=== PATIENT | female | born 1995 | race Caucasian/White ===

== ENCOUNTER → 2018-01-04 10:11 | Outpatient (CLI) | payer BC, SELFPAY ==
--- NOTE | 2018-01-04 10:13 | US_ITS ---
US OB transvaginal CLINICAL INDICATION: Evaluate early gestational age and viability ITS.REASON: US OB- Dates ORDERING PHYSICIAN: Timmy Ogden MD PATIENT AGE: 22 years COMPARISON: None FINDINGS: There is a twin gestation present with 2 fetuses and 2 separate heartbeats. The crown-rump length of fetus B which was cephalad within the endometrial canal is 1.87 cm correlating to gestational age of 8 weeks and 3 days. Fetus B heart rate is 174 bpm. [place]-rump length of fetus a is 1.7 cm correlating to gestational age of 8 weeks 2 days. Fetus A heart rate is 174 bpm. The chorion and amnion are not yet fused. There does appear to be 2 sacs. Yolk sac is noted at fetus B. There is a 2 cm right corpus luteum cyst. IMPRESSION: Live twin gestation at 8 weeks 2 with an estimated due date of 08/13/2016 days. Heart tones noted within both fetuses
[2018-01-04 12:13] LABS: Basophils % 0.3 % (0.1-2.0); Eosinophils # 0.1 K/mm3 (0.0-0.4); Hematocrit 36.6 % (37.0-47.0); Hemoglobin 12.2 g/dL (12.2-16.2); Lymphocytes # 1.8 K/mm3 (0.7-4.5); Lymphocytes % 22.1 K/mm3 (10-50); Mean Corpuscular HGB Conc 33.3 g/dL (31.8-35.4); Mean Corpuscular Hemoglobin 30.1 pg (27.0-31.2); Mean Corpuscular Volume 90.5 fl (81-99); Mean Platelet Volume 7.8 fl (7.4-10.4); Monocytes # 0.4 K/mm3 (0.1-1.0); Monocytes % 5.4 % (1.7-9.3); Neutrophils # 5.7 K/mm3 (1.8-7.8); Neutrophils % 71.2 % (37.0-80.0); Platelet Count 233 K/mm3 (142-424); Red Blood Count 4.05 M/mm3 (4.20-5.40); Red Cell Distribution Width 12.9 % (11.5-17.5); White Blood Count 7.9 K/mm3 (4.8-10.8)
[2018-01-05 18:40] LABS: HIV Screen 4th Generation wRfx Non Reactive (Non Reactive); Hepatitis B Surface Antigen Negative (Negative); Hepatitis C Antibody 0.1 s/co ratio (0.0-0.9); Rapid Plasma Reagin Ab Titer Non Reactive (NonRea<1:1); Rubella Antibodies, IgG <0.90 index (Immune >0.99)
== END ==
PROVIDERS: Family Provider Emergency Medicine; PCP Emergency Medicine; Visit Provider Nurse Practitioner Obstetrics & Gynecology
DX: Z34.90 Encounter for supervision of normal pregnancy, unspecified, unspecified trimester (principal); O26.841 Uterine size-date discrepancy, first trimester
CPT/HCPCS: 76830; 85025; 86592; 86703; 86762; 86850; 87340; 87380; G0432

== ENCOUNTER 2018-04-03 12:55 | Outpatient (CLI) | payer BC, SELFPAY ==
[2018-04-03 14:19] VITALS: BP 107/70; PULSE 107; RESP 20; TEMP 36.7; O2SAT 100
[2018-04-03 14:28] LABS: Anion Gap 13.4 mEq/L (5-15); Blood Urea Nitrogen 7 mg/dL (7-18); Calcium 7.6 mg/dL (8.5-10.1); Carbon Dioxide 25 mmol/L (21.0-32.0); Chloride 104 mmol/L (98-107); Creatinine Clearance Estimated 143 mL/min (0-300); Creatinine,Serum 0.52 mg/dL (0.55-1.02); Estimated Glomerular Filt Rate 145 ml/min (>60); GFR (African American) 175 ML/MIN (>60); Glucose 122 mg/dL (74-106); Potassium 3.4 mmoL/L (3.5-5.1); Sodium 139 mmol/L (136-145)
[2018-04-03 14:39] LABS: Basophils % 0.2 % (0.1-2.0); Eosinophils % 0.4 % (0.1-12.0); Hemoglobin 9.5 g/dL (12.2-16.2); Lymphocytes # 1.1 K/mm3 (0.7-4.5); Lymphocytes % 11.6 K/mm3 (10-50); Mean Corpuscular HGB Conc 32.6 g/dL (31.8-35.4); Mean Corpuscular Hemoglobin 30.2 pg (27.0-31.2); Mean Corpuscular Volume 92.6 fl (81-99); Mean Platelet Volume 7.7 fl (7.4-10.4); Monocytes # 0.2 K/mm3 (0.1-1.0); Monocytes % 2.1 % (1.7-9.3); Neutrophils # 8.4 K/mm3 (1.8-7.8); Neutrophils % 85.7 % (37.0-80.0); Platelet Count 224 K/mm3 (142-424); Red Blood Count 3.13 M/mm3 (4.20-5.40); Red Cell Distribution Width 13.9 % (11.5-17.5); White Blood Count 9.8 K/mm3 (4.8-10.8)
[2018-04-03 14:41] LABS: MANUAL DIFFERENTIAL MANUAL DIFFERENTIAL (MANUAL DIFF)
[2018-04-03 15:17] LABS: Lymphocytes % 10 % (10-50); Monocytes % 4 % (2-9); Neutrophils % 86 % (42-76); Platelet Estimate Normal; Total Cells Counted 100
== END 2018-04-03 15:34 | disposition home or self-care (01) ==
LOC: RAD 12:55 → OBOUT 13:54 → OB 13:55
PROVIDERS: Family Provider Emergency Medicine; PCP Emergency Medicine; Visit Provider Nurse Practitioner Obstetrics & Gynecology
DX: O30.002 Twin pregnancy, unspecified number of placenta and unspecified number of amniotic sacs, second trimester (principal); Z3A.23 23 weeks gestation of pregnancy; R11.2 Nausea with vomiting, unspecified
CPT/HCPCS: 80048; 85007; 85025; 96360; J2405

== ENCOUNTER → 2018-04-08 13:53 | Outpatient (CLI) | payer BC, SELFPAY ==
--- NOTE | 2018-04-08 | US_ITS ---
US OB /maternal detail, US OB f/u add gest: INDICATION: ITS.REASON: US OB Complete Anatomy Scans(TWINS) ORDERING PHYSICIAN: Timmy Ogden MD PATIENT AGE: 23 years TECHNIQUE: ultrasound transabdominal scanning. COMPARISON: No previous relevant studies. FINDINGS: Twin viable intrauterine gestation. . There is average amount fluid. The cervix appears satisfactory. Closed and measuring 3 cm in length. Complete survey performed and was unremarkable on the submitted images as in PACS. No discrete anomalies identified on survey imaging by technologist. Active fetus. Three-vessel cord with satisfactory umbilical cord insertion. 4- chamber heart noted. Survey of brain & ventricles unremarkable. Face and neck survey unremarkable. Diaphragm and chest views unremarkable. Abdomen: Both kidneys noted and unremarkable. Stomach noted and satisfactory. Spine: Survey of the spine satisfactory with no anomalies identified nor imaged. Both arms and legs noted. Amniotic Fluid: Adequate. Maternal adnexa: No significant findings. Measurements: FETUS A, cephalic presentation, no obvious anomalies, posterior grade 1 placenta Average ultrasound age 21 weeks 2 days. Gestational Age 23 weeks 5 days. Estimated due date by ultrasound age 1108/17/2018. Estimated weight 397 g. This is 2nd percentile based on the established due date of 08/15/2018. BPD = 22 weeks 0 days OFD = 21 weeks 6 days HC = 21 weeks 1 day AC = 21 weeks 3 days FL = 20 weeks 4 days Heart Rate = 147 BPM Cerebellum = 23 weeks 0 days Humerus = 21 weeks 3 days HC/AC is 1.15. CI is 79%. FL/BPD is 64%. FL/AC is 21%. FETUS B: Breech position. Anterior grade 1 placenta. No obvious anomalies Average ultrasound age 21 weeks 3 days. Gestational age 23 weeks 5 days. Estimated due date by ultrasound 08/16/2018. Estimated weight 405 g which is 2nd percentile based on established due date of 08/15/2018 BPD: 22 weeks 1 day. OFD: 22 weeks 0 days. HC: 21 weeks 2 days. Abdominal circumference 21 weeks 5 days. FL: 20 weeks 4 days. Heart rate 150 BPM's. Cerebellum: 22 weeks 4 days. Humerus: 21 weeks 3 days IMPRESSION: There is a live twin gestation is dichorionic and diamniotic with an average ultrasound age of 21 weeks and 3 days. Both of the fetuses are at 2nd percentile in weight. All parameters correlate. No obvious anomalies. Please see above for detail.
== END ==
PROVIDERS: Family Provider Emergency Medicine; PCP Emergency Medicine; Visit Provider Nurse Practitioner Obstetrics & Gynecology
DX: Z36.0 Encounter for antenatal screening for chromosomal anomalies (principal)
CPT/HCPCS: 76811; 76816

== ENCOUNTER 2018-04-30 14:35 | Outpatient (CLI) | payer BC, SELFPAY ==
[2018-04-30 14:47] VITALS: BP 100/61; PULSE 100; RESP 18; TEMP 36.4; O2SAT 100; BMI 20.4
== END 2018-04-30 15:00 | disposition home or self-care (01) ==
LOC: OBOUT 14:38 → OB 14:38
PROVIDERS: PCP Emergency Medicine; Visit Provider Nurse Practitioner Obstetrics & Gynecology
DX: Z34.90 Encounter for supervision of normal pregnancy, unspecified, unspecified trimester (principal)
CPT/HCPCS: 96372

== ENCOUNTER 2018-05-01 14:35 | Outpatient (CLI) | payer BC, SELFPAY ==
[2018-05-01 14:50] VITALS: BMI 21.0
== END 2018-05-01 15:00 | disposition home or self-care (01) ==
LOC: OBOUT 14:36 → OB 14:48
PROVIDERS: PCP Emergency Medicine; Visit Provider Nurse Practitioner Obstetrics & Gynecology
DX: O30.042 Twin pregnancy, dichorionic/diamniotic, second trimester (principal); Z3A.25 25 weeks gestation of pregnancy
CPT/HCPCS: 96372

== ENCOUNTER 2018-05-01 21:48 | Outpatient (CLI) | payer BC, SELFPAY ==
[2018-05-01 21:54] VITALS: BMI 21.0
[2018-05-01 22:12] VITALS: BP 119/69; PULSE 105; RESP 17; TEMP 36.8; O2SAT 97; BMI 21.0
[2018-05-01 22:31] LABS: Microscopic, Urine URINE MICROSCOPIC (MICROSCOPIC)
[2018-05-01 22:32] LABS: Appearance,Urine CLEAR (Clear); Bilirubin,Urine Negative (Negative); Blood, Urine TRACE-I (Negative); Color,Urine YELLOW (Yellow); Glucose,Urine (UA) Negative (Negative); Ketones,Urine Negative (Negative); Leukocyte Esterase,Urine 1+ (Negative); Nitrate,Urine Negative (Negative); Protein,Urine Negative (Negative); Specific Gravity, Urine 1.015 (1.005-1.030); Urobilinogen,Urine 0.2 EU/dl (0.2)
[2018-05-01 22:39] LABS: Bacteria,Urine 2+ /lpf; RBC,Urine Occasional #/hpf (0-3); Squamous Epithelial Cell,Urine TNTC #/hpf (0-5)
[2018-05-01 23:07] LABS: Fetal Fibronectin (Rapid) Negative (Negative)
== END 2018-05-02 00:50 | disposition home or self-care (01) ==
LOC: OBOUT 21:50 → OB 21:51
PROVIDERS: PCP Emergency Medicine; Referring Provider Nurse Practitioner Obstetrics & Gynecology; Visit Provider Obstetrics & Gynecology
DX: O26.92 Pregnancy related conditions, unspecified, second trimester (principal); Z3A.27 27 weeks gestation of pregnancy; R10.30 Lower abdominal pain, unspecified
CPT/HCPCS: 59025; 81001; 82731; 87086; 96360

== ENCOUNTER 2018-05-22 20:18 | Outpatient (CLI) | payer BC, SELFPAY ==
[2018-05-22 20:28] VITALS: BMI 20.2
[2018-05-22 20:35] LABS: Microscopic, Urine URINE MICROSCOPIC (MICROSCOPIC)
[2018-05-22 20:37] LABS: Appearance,Urine CLEAR (Clear); Bilirubin,Urine Negative (Negative); Blood, Urine TRACE-L (Negative); Color,Urine YELLOW (Yellow); Glucose,Urine (UA) Negative (Negative); Ketones,Urine Negative (Negative); Leukocyte Esterase,Urine 2+ (Negative); Nitrate,Urine Negative (Negative); Protein,Urine Negative (Negative); Specific Gravity, Urine 1.015 (1.005-1.030)
[2018-05-22 20:50] VITALS: BP 128/70; PULSE 105; RESP 18; TEMP 37.2; O2SAT 100
[2018-05-22 20:51] LABS: Bacteria,Urine 2+ /lpf; Mucus,Urine 2+ /lpf; Squamous Epithelial Cell,Urine 20-50 #/hpf (0-5)
[2018-05-22 21:00] VITALS: BMI 20.4
[2018-05-22 21:11] LABS: Fetal Membrane Rupture (Rapid) Negative (Negative)
== END 2018-05-22 22:35 | disposition home or self-care (01) ==
LOC: OBOUT 20:20 → OB 20:22
PROVIDERS: PCP Emergency Medicine; Visit Provider Nurse Practitioner Obstetrics & Gynecology
DX: O47.03 False labor before 37 completed weeks of gestation, third trimester (principal); Z3A.30 30 weeks gestation of pregnancy; R10.2 Pelvic and perineal pain
CPT/HCPCS: 59025; 81001; 84112; 87086; 96360; 96372

== ENCOUNTER 2018-05-24 21:06 | Outpatient (CLI) | payer BC, SELFPAY ==
[2018-05-24 21:22] VITALS: BP 111/78; PULSE 110; RESP 18; TEMP 36.9; O2SAT 97; BMI 20.9
[2018-05-24 22:35] LABS: Fetal Fibronectin (Rapid) Negative (Negative)
== END 2018-05-24 22:50 | disposition home or self-care (01) ==
LOC: OBOUT 21:08 → OB 21:09
PROVIDERS: PCP Nurse Practitioner Obstetrics & Gynecology; Visit Provider Obstetrics & Gynecology
DX: O36.8130 Decreased fetal movements, third trimester, not applicable or unspecified (principal); O30.003 Twin pregnancy, unspecified number of placenta and unspecified number of amniotic sacs, third trimester; Z3A.28 28 weeks gestation of pregnancy
CPT/HCPCS: 59025; 82731; 96360

== ENCOUNTER 2020-06-17 15:20 | Emergency (ER) | payer BC, SELFPAY ==
[2020-06-17 16:03] VITALS: BP 101/70; PULSE 82; RESP 20; TEMP 36.9; O2SAT 99; BMI 23.0
--- NOTE | 2020-06-17 16:13 | HMH.EDUTC ---
[facility] [place] Disposition Clinical Impression: Laryngitis Disposition: Home, Self-Care Condition on Discharge: Good Instructions: Laryngitis, DI for Laryngitis Additional Instructions: *Monitor Temp, Over the counter Motrin or Tylenol as directed/as needed Tylenol every 4 hours and Motrin every 6 hours (as long as your family doctor has told you that you can take it) for fever or pain. and straight to ER if unable to lower temp less than 101.0 after medication given *Warm salt water gargles may help to soothe the throat and help with irritation *Throat Lozenges *Warm fluids like tea with honey may help to soothe the throat *Sleep elevated *Humidifier/Vaporizer *Flonase 2 sprays in each nostril daily but be aware that it may take 2-3 days before you notice improvement Your throat swab was sent for culture. Those results are typically sent to your primary care. Be sure to follow up in 2-3 days with your family doctor/primary care physician if no improvement so they can review those result and treat if necessary. If you don?t have a primary care doctor, I recommend you get one but in the mean time, you will have to return to a walk in clinic Follow up IMMEDIATELY for new or worsening symptoms or no Noticeable improvement over the next 48-72 hours. 911 for difficulty breathing or swallowing Referrals: José To MD [Primary Care Provider] - As needed Time of Disposition: 16:17 Medical Decision Making - Catalino Inquiry Pt receiving controlled substance: No Catalino was queried for this patient: No Vital Signs: 06/17/20 16:03 Temperature 98.4 F Temperature Source Oral Pulse Rate [Right Brachial] 82 Respiratory Rate 20 Blood Pressure [Right Arm] 101/70 L Blood Pressure Mean [Right Arm] 80 Blood Pressure Source [Right Arm] Automatic Cuff Blood Pressure Position [Right Arm] Sitting 02 Sat by Pulse Oximetry 99 Oxygen Delivery Method Room Air - Lab Data Lab results reviewed: Yes: I reviewed the patient's lab results. [facility] [place] HPI - General Stated complaint: SOB, Can't talk Time Seen by Provider: 06/17/20 16:13 Mode of Arrival: Ambulatory Source of Information: Patient Limitations: No Limitations Description of Symptoms (Recalled from Triage Doc. by RN): PATIENT STATES SHE WOKE UP THIS MORNING AND IS LOSING HER VOICE; DENIES ANY OTHER SYMPTOMS HEENT Symptoms (Recalled from RN notes): Yes Resp Symptoms (Recalled from RN notes): No Skin Symptoms (Recalled from RN notes): No MS Symptoms (Recalled from RN notes): No Functional Status (Recalled from RN notes): WNL - History of Present Illness Provider Complaint: Patient states that she woke up this morning and had lost her voice, States that she isnt having any other symptoms Denies sore throat, denies sinus pain or pressure denies cough and fever - Related Data Home Medications Medication Instructions Recorded Confirmed penicillin V potassium 250 mg 250 mg PO QID 07/17/18 07/17/18 tablet Previous Rx's Medication Instructions Recorded albuterol sulfate 90 mcg/actuation 1 inh INHALATION Q4-6H PRN #1 each 03/14/19 breath activated powder inhaler Allergies Allergy/AdvReac Type Severity Reaction Status Date / Time No Known Allergies Allergy Verified 07/17/18 16:15 - Worker's Comp Is this a Worker's Comp case?: No [facility] History - Hepatitis A Screen Drug use history?: No High risk sexual behaviors?: No History of sexually transmitted infection?: No Currently employed?: No Childcare worker?: No Do you have indoor plumbing?: Yes Do you have electricity?: Yes Attestation statement:: This patient has been screened for Hepatitis A risk factors. I have reviewed the patient's past medical history: Yes Medical History: Reports:: Asthma, MRSA Denies:: Anxiety, Depression, Diabetes Mellitus Type 1, Diabetes Mellitus Type 2, Hyperlipidemia, Hypertension, Migraine, Seizures Other Surgeries: Yes: Amputation: No Fractures: No - Soci
[2020-06-17 16:18] VITALS: BP 101/70; PULSE 82; RESP 20; TEMP 36.9; O2SAT 99
[2020-06-17 20:53] LABS: UTC Strep Screen (Rapid) Negative (Negative)
== END 2020-06-17 16:20 | disposition home or self-care (01) ==
PROVIDERS: Emergency Provider Nurse Practitioner; PCP Emergency Medicine
DX: J04.0 Acute laryngitis (principal)
CPT/HCPCS: 87880; 99201

== ENCOUNTER → 2020-06-25 10:35 | Outpatient (CLI) | payer BC, SELFPAY ==
[2020-06-25 12:33] LABS: HCG,Quantitative < 2 mIU/ml (0-5.42)
== END ==
PROVIDERS: Visit Provider Nurse Practitioner Obstetrics & Gynecology
DX: N92.6 Irregular menstruation, unspecified (principal)
CPT/HCPCS: 36415; 84702

== ENCOUNTER 2020-09-16 12:56 | Emergency (ER) | payer BC, SELFPAY ==
[2020-09-16 13:10] VITALS: BP 117/76; PULSE 132; RESP 20; TEMP 36.6; O2SAT 99; BMI 24.1
--- NOTE | 2020-09-16 13:30 | HMH.EDUTC ---
[facility] [place] Disposition Clinical Impression: Bronchitis Pharyngitis Qualifiers: Pharyngitis/tonsillitis etiology: unspecified etiology Qualified Code(s): J02.9 - Acute pharyngitis, unspecified Disposition: Home, Self-Care Condition on Discharge: Good Instructions: DI for Strep Throat Additional Instructions: Drink plenty of fluids. Take tylenol for pain or fever. Return if you begin to have difficulty breathing. Follow up with your regular doctor. GO TO THE ER FOR ANY WORSENING SYMPTOMS Throw your tooth brush away and get a new one. Prescriptions: Albuterol Sulfate [Albuterol Sulfate Hfa] 2 puffs IH Q6HP PRN 30 Days #1 [email or web address] PRN Reason: Shortness Of Breath Transmission Status: Pending to [facility] Brompheniramine/Pseudoephed/Dm [Bromfed Dm Cough Syrup] 5 ml PO Q6HP PRN #240 syrup PRN Reason: Cough Transmission Status: Pending to [facility] Azithromycin [Z-Norris 250mg Tab*] 250 mg PO UD DOSE PK #6 tab Transmission Status: Pending to [facility] Referrals: José To MD [Primary Care Provider] - Time of Disposition: 13:34 Medical Decision Making - Medical Records Medical records reviewed: No: I reviewed the patient's medical records. - Catalino Inquiry Pt receiving controlled substance: No Vital Signs: 09/16/20 13:10 Temperature 97.8 F Temperature Source Temporal Artery Scan Pulse Rate [Left Brachial] 132 H Respiratory Rate 20 Blood Pressure [Left Arm] 117/76 Blood Pressure Mean [Left Arm] 89 Blood Pressure Source [Left Arm] Automatic Cuff Blood Pressure Position [Left Arm] Sitting 02 Sat by Pulse Oximetry 99 Oxygen Delivery Method Room Air - Lab Data Lab results reviewed: Yes: I reviewed the patient's lab results. [facility] [place] HPI - General Stated complaint: cough,runny nose,ear pain Time Seen by Provider: 09/16/20 13:30 Mode of Arrival: Ambulatory Source of Information: Patient Limitations: No Limitations Description of Symptoms (Recalled from Triage Doc. by RN): PATIENT C/O SORE THROAT, RUNNY NOSE, COUGH, AND EAR PAIN X 2 DAYS HEENT Symptoms (Recalled from RN notes): Yes Resp Symptoms (Recalled from RN notes): Yes Skin Symptoms (Recalled from RN notes): No MS Symptoms (Recalled from RN notes): No Functional Status (Recalled from RN notes): WNL - History of Present Illness Provider Complaint: She c/o sore throat and chilling since yesterday. She refuses a covid test. - Related Data Previous Rx's Medication Instructions Recorded albuterol sulfate 90 mcg/actuation 1 inh INHALATION Q4-6H PRN #1 each 03/14/19 breath activated powder inhaler Albuterol Sulfate [Albuterol 2 puffs IH Q6HP PRN 30 Days #1 09/16/20 Sulfate Hfa] hfa.aer.ad Azithromycin [Z-Norris 250mg Tab*] 250 mg PO UD DOSE PK #6 tab 09/16/20 Brompheniramine/Pseudoephed/Dm 5 ml PO Q6HP PRN #240 syrup 09/16/20 [Bromfed Dm Cough Syrup] Allergies Allergy/AdvReac Type Severity Reaction Status Date / Time No Known Allergies Allergy Verified 07/17/18 16:15 - Worker's Comp Is this a Worker's Comp case?: No [facility] History - Hepatitis A Screen Drug use history?: No High risk sexual behaviors?: No History of sexually transmitted infection?: No Currently employed?: No Childcare worker?: No Do you have indoor plumbing?: Yes Do you have electricity?: Yes Attestation statement:: This patient has been screened for Hepatitis A risk factors. I have reviewed the patient's past medical history: Yes Medical History: Reports:: Asthma, MRSA Denies:: Anxiety, Depression, Diabetes Mellitus Type 1, Diabetes Mellitus Type 2, Hyperlipidemia, Hypertension, Migraine, Seizures Other Surgeries: Yes: Amputation: No Fractures: No - Social History Smoking Status: Never smoker Tobacco Type: cigarettes # Packs/Day (cigarettes): 1 Alcohol Intake: never Alcohol Intake Frequency:: holidays/special occasions only Substance Use Type: denies use Occupational Status: other Ho
[2020-09-16 13:33] LABS: UTC Strep Screen (Rapid) Negative (Negative)
[2020-09-16 13:41] VITALS: BP 117/76; PULSE 132; RESP 20; TEMP 36.6; O2SAT 99
== END 2020-09-16 13:46 | disposition home or self-care (01) ==
PROVIDERS: Emergency Provider Nurse Practitioner Family; PCP Emergency Medicine
DX: J20.9 Acute bronchitis, unspecified (principal); J02.9 Acute pharyngitis, unspecified; J45.909 Unspecified asthma, uncomplicated; Z79.899 Other long term (current) drug therapy
CPT/HCPCS: 87880; 99201

== ENCOUNTER 2020-12-28 12:33 | Emergency (ER) | payer BC, SELFPAY ==
[2020-12-28 12:45] VITALS: BP 112/79; PULSE 115; RESP 14; TEMP 36.9; O2SAT 100; BMI 24.7
[2020-12-28 12:53] LABS: Apearance,Urine Clear (Clear); Color,Urine Dark Yellow (Yellow)
[2020-12-28 12:54] LABS: Glucose,Urine (UA) Negative (Negative); Ketones,Urine SMALL (Negative); Specific Gravity, Urine 1.025 (1.005-1.030)
[2020-12-28 12:55] LABS: Bilirubin,Urine 1+ (Negative); Blood, Urine 4+ (Negative); Protein,Urine 3+ (Negative)
[2020-12-28 12:56] LABS: UTC Leukocyte Esterase,Urine 1+ (Negative); UTC Nitrate,Urine Positive (Negative); UTC Pregnancy Test, Urine Negative (Negative); Urobilinogen,Urine 0.2 EU/dl (0.2)
--- NOTE | 2020-12-28 13:08 | HMH.EDUTC ---
[facility] [place] Clinical Impression: UTI (urinary tract infection) Qualifiers: Urinary tract infection type: site unspecified Hematuria presence: with hematuria Qualified Code(s): N39.0 - Urinary tract infection, site not specified Disposition: Home, Self-Care Condition on Discharge: Good Instructions: Urinary Tract Infection, DI for Urinary Tract Infection (UTI) Additional Instructions: Drink plenty of fluids. Take tylenol or ibuprofen for pain or fever. Take the medications as directed. Follow up with your regular doctor. GO TO THE ER FOR ANY WORSENING SYMPTOMS The pyridium will make your urine turn orange, this is an expected side effect. It will stain your clothes if it comes into contact with them. Prescriptions: Ondansetron [Zofran 4mg ODT] 4 mg PO Q8HP PRN #20 tab.rapdis PRN Reason: Nausea Transmission Status: Received by Clinic [facility] Sulfamethoxazole/Trimethoprim [Bactrim DS tablet] 1 each PO BID 7 Days #14 tab Transmission Status: Received by [facility] Phenazopyridine HCl [Pyridium 200mg Tablet] 200 pow PO TID #6 tab Transmission Status: Received by [facility] Referrals: PCP,No [Primary Care Provider] - Time of Disposition: 13:13 Medical Decision Making - Medical Records Medical records reviewed: No: I reviewed the patient's medical records. - Catalino Inquiry Pt receiving controlled substance: No Vital Signs: 12/28/20 12:45 12/28/20 13:22 Temperature 98.5 F 98 F Temperature Source Oral Pulse Rate 109 H Pulse Rate [Right] 115 H Respiratory Rate 14 15 Blood Pressure 116/81 Blood Pressure [Right Arm] 112/79 Blood Pressure Mean [Right Arm] 90 Blood Pressure Source [Right Arm] Automatic Cuff Blood Pressure Position [Right Arm] Sitting 02 Sat by Pulse Oximetry 100 Oxygen Delivery Method Room Air - Lab Data Lab results reviewed: Yes: I reviewed the patient's lab results. Lab Results 12/28/20 12:45: Urine Color Dark yellow, Urine Appearance Clear, Urine pH 6.0, Ur Specific Saline 1.025, Urine Protein 3+, Urine Glucose (UA) Negative, Urine Ketones Small, Urine Blood 4+, Urine Nitrate Positive A, Urine Bilirubin 1+ A, Urine Urobilinogen 0.2, Ur Leukocyte Esterase 1+ A, Tst Clinic Negative Orders (Tests/Meds): ORDERS Category Date Time Status Urine Culture Routine Micro 12/28/20 12:40 Received [facility] [place] HPI - General Stated complaint: stomach pain and vomiting Time Seen by Provider: 12/28/20 13:08 Mode of Arrival: Ambulatory Source of Information: Patient Limitations: No Limitations Description of Symptoms (Recalled from Triage Doc. by RN): pt states she is having abd in her lower quads radiating to her flank. pt is having N/V/D. pt states she is throwing up green bile. pt has not had a period this month. HEENT Symptoms (Recalled from RN notes): No Resp Symptoms (Recalled from RN notes): No Skin Symptoms (Recalled from RN notes): No MS Symptoms (Recalled from RN notes): No Functional Status (Recalled from RN notes): na - History of Present Illness Provider Complaint: She c/o low back pain and lower abdominal tenderness for the past 2 days. - Related Data Previous Rx's Medication Instructions Recorded albuterol sulfate 90 mcg/actuation 1 inh INHALATION Q4-6H PRN #1 each 03/14/19 breath activated powder inhaler Albuterol Sulfate [Albuterol 2 puffs IH Q6HP PRN 30 Days #1 09/16/20 Sulfate Hfa] hfa.aer.ad Azithromycin [Z-Norris 250mg Tab*] 250 mg PO UD DOSE PK #6 tab 09/16/20 Brompheniramine/Pseudoephed/Dm 5 ml PO Q6HP PRN #240 syrup 09/16/20 [Bromfed Dm Cough Syrup] amoxicillin 500 mg tablet 500 mg PO BID 10 Days #20 tab 11/01/20 Ondansetron [Zofran 4mg ODT] 4 mg PO Q8HP PRN #20 tab.rapdis 12/28/20 Phenazopyridine HCl [Pyridium 200 pow PO TID #6 tab 12/28/20 200mg Tablet] Sulfamethoxazole/Trimethoprim 1 each PO BID 7 Days #14 tab 12/28/20 [Bactrim DS tablet] Allergies Allergy/
[2020-12-28 13:22] VITALS: BP 116/81; PULSE 109; RESP 15; TEMP 36.6
== END 2020-12-28 13:24 | disposition home or self-care (01) ==
PROVIDERS: Emergency Provider Nurse Practitioner Family
DX: N30.00 Acute cystitis without hematuria (principal); J45.909 Unspecified asthma, uncomplicated; F17.210 Nicotine dependence, cigarettes, uncomplicated; Z79.899 Other long term (current) drug therapy
CPT/HCPCS: 81003; 81025; 87086; 87088; 87186; 99202; G0463

== ENCOUNTER 2021-04-11 19:19 | Emergency (ER) | payer BC, SELFPAY ==
[2021-04-11 19:32] VITALS: BP 134/87; PULSE 60; RESP 17; TEMP 36.2; O2SAT 97; BMI 22.1
--- NOTE | 2021-04-11 20:23 | HMH.EDWNDL ---
ED Disposition Clinical Impression: Finger laceration Qualifiers: Encounter type: initial encounter Finger: index finger Damage to nail status: with damage Foreign body presence: without foreign body Laterality: left Qualified Code(s): S61.311A - Laceration without foreign body of left index finger with damage to nail, initial encounter Disposition: Home, Self-Care Condition on Discharge: Good Instructions: DI for Laceration Repair Additional Instructions: sutures out 10 days and recheck if needed Referrals: José To MD [Primary Care Provider] - - Critical Care Critical Care Time: No Attestation: On 04/11/21, the high probability of a clinically significant, sudden or life threatening deterioration of the following system(s) required my full and direct attention, intervention and personal management. The time I documented below is in addition to time spent performing reported procedures but includes the following listed in this critical care notation. Medical Decision Making - Medical Records Medical records reviewed: Yes: I reviewed the patient's medical records. - Catalino Inquiry Pt receiving controlled substance: No Vital Signs: 04/11/21 19:32 Temperature 97.1 F L Temperature Source Oral Pulse Rate [Right Brachial] 60 Respiratory Rate 17 Blood Pressure [Right Arm] 134/87 Blood Pressure Mean [Right Arm] 102 Blood Pressure Source [Right Arm] Automatic Cuff Blood Pressure Position [Right Arm] Sitting 02 Sat by Pulse Oximetry 97 Oxygen Delivery Method Room Air - Lab Data Lab results reviewed: Yes: I reviewed the patient's lab results. Orders (Tests/Meds): ED MEDICATIONS Discontinued Medications Generic Name Dose Route Start Last Admin Trade Name Freq PRN Reason Stop Dose Admin Tetanus/Diphtheria Toxoids 0.5 ml 04/11/21 19:36 04/11/21 19:55 Tetanus-Diphth Toxoid, Adult 0.5ml Syr IM 04/11/21 19:37 0.5 ml .ONCE ONE Administration Wound/Laceration HPI - General Chief Complaint: Wound/Laceration Stated Complaint: AO [id number] lac to L Index finger\ Time Seen by Provider: 04/11/21 20:00 Mode of Arrival: Family Vehicle Source of Information: Patient, Spouse, Medical Record Limitations: No Limitations Description of Symptoms (Recalled from ER Triage Doc. by RN): left index finger laceration from fileting fish for supper. pt states she accidentally cut herself. not up to date on tetanus. pt vss. no fb noted - History of Present Illness HPI narrative: lac lt index finger at home Onset (ago): hour(s) Extremity Location: Left: hand Place: home Patient tetanus UTD: No Context: sharp object use Associated symptoms: none - Related Data Previous Rx's Medication Instructions Recorded albuterol sulfate 90 mcg/actuation 1 inh INHALATION Q4-6H PRN #1 each 03/14/19 breath activated powder inhaler Albuterol Sulfate [Albuterol 2 puffs IH Q6HP PRN 30 Days #1 09/16/20 Sulfate Hfa] hfa.aer.ad Azithromycin [Z-Norris 250mg Tab*] 250 mg PO UD DOSE PK #6 tab 09/16/20 Brompheniramine/Pseudoephed/Dm 5 ml PO Q6HP PRN #240 syrup 09/16/20 [Bromfed Dm Cough Syrup] amoxicillin 500 mg tablet 500 mg PO BID 10 Days #20 tab 11/01/20 Ondansetron [Zofran 4mg ODT] 4 mg PO Q8HP PRN #20 tab.rapdis 12/28/20 Phenazopyridine HCl [Pyridium 200 pow PO TID #6 tab 12/28/20 200mg Tablet] Sulfamethoxazole/Trimethoprim 1 each PO BID 7 Days #14 tab 12/28/20 [Bactrim DS tablet] Allergies Allergy/AdvReac Type Severity Reaction Status Date / Time No Known Allergies Allergy Verified 12/28/20 12:44 [facility] History - Hepatitis A Screen Drug use history?: No High risk sexual behaviors?: No History of sexually transmitted infection?: No Currently employed?: No Childcare worker?: No Do you have indoor plumbing?: Yes Do you have electricity?: Yes Attestation statement:: This patient has been screened for Hepatitis A risk factors. I have reviewed the patient's past medical
[2021-04-11 20:37] VITALS: BP 112/71; PULSE 73; RESP 18; TEMP 36.8; O2SAT 98
== END 2021-04-11 20:39 | disposition home or self-care (01) ==
PROVIDERS: Emergency Provider Emergency Medicine; PCP Emergency Medicine
DX: S61.311A Laceration without foreign body of left index finger with damage to nail, initial encounter (principal); W26.0XXA Contact with knife, initial encounter; Y92.018 Other place in single-family (private) house as the place of occurrence of the external cause; Z23 Encounter for immunization; J45.909 Unspecified asthma, uncomplicated; F17.210 Nicotine dependence, cigarettes, uncomplicated
CPT/HCPCS: 12001; 90471; 90714; 99281

== ENCOUNTER → 2021-08-26 13:36 | Outpatient (CLI) | payer BC, SELFPAY ==
[2021-08-26 16:04] LABS: Basophils # 0.1 K/mm3 (0-0.2); Basophils % 1.2 % (0.1-2.0); Eosinophils # 0.3 K/mm3 (0.0-0.4); Eosinophils % 3.6 % (0.1-12.0); Hematocrit 41.8 % (37.0-47.0); Hemoglobin 14.1 g/dL (12.2-16.2); Lymphocytes # 2.8 K/mm3 (0.7-4.5); Mean Corpuscular HGB Conc 33.7 g/dL (31.8-35.4); Mean Corpuscular Volume 92.2 fl (81-99); Mean Platelet Volume 9.9 fl (7.4-10.4); Monocytes # 0.4 K/mm3 (0.1-1.0); Monocytes % 5.5 % (1.7-9.3); Neutrophils # 4.3 K/mm3 (1.8-7.8); Neutrophils % 54.7 % (37.0-80.0); Platelet Count 255 K/mm3 (142-424); Red Blood Count 4.54 M/mm3 (4.20-5.40); Red Cell Distribution Width 13.6 % (11.5-17.5); White Blood Count 7.9 K/mm3 (4.8-10.8)
[2021-08-26 17:42] LABS: Alanine Aminotransferase 11 U/L (12-78); Albumin Level 4.2 g/dl (3.5-5.0); Albumin/Globulin Ratio 1.6 (1.1-1.8); Alkaline Phosphatase 58 U/L (38-126); Anion Gap 10.7 mEq/L (5-15); Aspartate Amino Transferase 20 U/L (14-36); Bilirubin,Total 0.6 mg/dl (0.2-1.3); Blood Urea Nitrogen 11 mg/dl (7-17); Calcium 9.1 mg/dl (8.4-10.2); Carbon Dioxide 28 mmol/L (22.0-30.0); Chloride 104 mmol/L (98-107); Estimated Glomerular Filt Rate 120 ml/min (>60); GFR (African American) 145 ML/MIN (>60); Globulin 2.6 g/dL (1.3-3.2); Glucose 83 mg/dl (74-100); Potassium 4.7 mmoL/L (3.5-5.1); Sodium 138 mmol/L (136-145); Total Protein,Serum 6.8 g/dl (6.3-8.2)
[2021-08-26 20:23] LABS: Thyroid Stimulating Hormone 3.66 uIU/mL (0.465-4.68)
== END ==
PROVIDERS: Visit Provider Family Medicine
DX: R20.0 Anesthesia of skin (principal); E55.9 Vitamin D deficiency, unspecified; R20.2 Paresthesia of skin
CPT/HCPCS: 80053; 82306; 82746; 84443; 85025

== ENCOUNTER → 2022-01-20 12:51 | Outpatient (CLI) | payer BC, SELFPAY ==
[2022-01-20 15:10] LABS: HCG,Quantitative < 2 mIU/ml (0-5.42)
== END ==
PROVIDERS: Visit Provider Nurse Practitioner Obstetrics & Gynecology
DX: N92.6 Irregular menstruation, unspecified (principal)
CPT/HCPCS: 36415; 84702

== ENCOUNTER 2022-03-23 15:29 | Emergency (ER) | payer BC, SELFPAY ==
[2022-03-23 15:40] VITALS: BP 118/68; PULSE 94; RESP 18; TEMP 36.8; O2SAT 98; BMI 22.1
[2022-03-23 16:13] VITALS: BP 118/68; PULSE 94; RESP 18; TEMP 36.8; O2SAT 98
--- NOTE | 2022-03-23 16:22 | HMH.EDUTC ---
[facility] [place] Clinical Impression: Exposure to COVID-19 virus Disposition: Home, Self-Care Condition on Discharge: Good Instructions: Preventing the Spread of Coronavirus Discharge Instructions Additional Instructions: self isolate until covid test is known to be negative Referrals: José To MD [Primary Care Provider] - Time of Disposition: 16:25 Medical Decision Making - Catalino Inquiry Pt receiving controlled substance: No Vital Signs: 03/23/22 15:40 03/23/22 16:13 Temperature 98.3 F 98.3 F Temperature Source Temporal Artery Scan Pulse Rate 94 H Pulse Rate [Right Brachial] 94 H Respiratory Rate 18 18 Blood Pressure 118/68 Blood Pressure [Right Arm] 118/68 Blood Pressure Mean [Right Arm] 84 Blood Pressure Source [Right Arm] Automatic Cuff Blood Pressure Position [Right Arm] Sitting 02 Sat by Pulse Oximetry 98 Oxygen Delivery Method Room Air Orders (Tests/Meds): ORDERS Category Date Time Status Covid-19 Nasal PCR ([facility]) Routine Lab 03/23/22 15:40 Received [facility] [place] HPI - General Chief complaint: [facility] Stated complaint: covid test and cough Time Seen by Provider: 03/23/22 16:22 Mode of Arrival: Ambulatory Source of Information: Patient Limitations: No Limitations Description of Symptoms (Recalled from Triage Doc. by RN): COVID TEST D/T EXPOSURE HEENT Symptoms (Recalled from RN notes): No Resp Symptoms (Recalled from RN notes): No Skin Symptoms (Recalled from RN notes): No MS Symptoms (Recalled from RN notes): No Functional Status (Recalled from RN notes): WNL - History of Present Illness Provider Complaint: 27 yr old female presents for covid test due to exposer. pt states slight cough but just started the air conditioner up and thinks its allergies - Related Data Previous Rx's Medication Instructions Recorded albuterol sulfate 90 mcg/actuation 1 inh INHALATION Q4-6H PRN #1 each 03/14/19 breath activated powder inhaler albuterol sulfate 90 mcg/actuation 2 puff INHALATION Q6HP PRN 30 Days 09/19/21 aerosol inhaler #1 g pantoprazole 40 mg tablet,delayed 40 mg PO DAILY #90 tab 11/10/21 release Allergies Allergy/AdvReac Type Severity Reaction Status Date / Time No Known Allergies Allergy Verified 09/19/21 13:30 - Worker's Comp Is this a Worker's Comp case?: No [facility] History - Hepatitis A Screen Attestation statement:: This patient has been screened for Hepatitis A risk factors. I have reviewed the patient's past medical history: Yes Medical History: Reports:: Asthma, MRSA Denies:: Anxiety, Depression, Diabetes Mellitus Type 1, Diabetes Mellitus Type 2, Hyperlipidemia, Hypertension, Migraine, Seizures Other Surgeries: Yes: Amputation: No Fractures: No - Social History Smoking Status: Current every day smoker Tobacco Type: cigarettes # Packs/Day (cigarettes): 1 Alcohol Intake: never Alcohol Intake Frequency:: holidays/special occasions only Substance Use Type: denies use Occupational Status: employed Housing: house Household Members: spouse - Psychiatric History Pschychiatric History:: Denies:: Anxiety, Depression Family Hx:: No significant family history, Asthma, Cancer, Diabetes, Heart Attack, Hyperlipidemia, Hypertension [employer]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 Obtained: Yes Systems reviewed as appropriate & no additional complaints - Constitutional Constitutional: Reports system reviewed and no additional complaints, except as docu, Denies fever(s) - Eyes Eyes: Reports system reviewed and no additional complaints, except as docu, Denies dry eyes - ENT Ears, Nose, Mouth, and Throat: Reports system reviewed and no additional complaints, except as docu, Denies sore throat - Cardiovascular Cardiovascular: Reports system reviewed and no additional complaints, except as docu, Denies chest pain - Respiratory Respiratory: Reports system reviewed and no additional complaints, except as docu, Reports cough
== END 2022-03-23 16:30 | disposition home or self-care (01) ==
PROVIDERS: Emergency Provider Nurse Practitioner Family; PCP Emergency Medicine
DX: Z03.89 Encounter for observation for other suspected diseases and conditions ruled out (principal); Z20.822 Contact with and (suspected) exposure to COVID-19; J45.909 Unspecified asthma, uncomplicated; F32.A Depression, unspecified; F41.9 Anxiety disorder, unspecified; F17.210 Nicotine dependence, cigarettes, uncomplicated; Z79.51 Long term (current) use of inhaled steroids; Z86.14 Personal history of Methicillin resistant Staphylococcus aureus infection
CPT/HCPCS: 99213; C9803; G0463; U0003; U0005

== ENCOUNTER 2022-04-03 19:23 | Emergency (ER) | payer BC, SELFPAY ==
[2022-04-03 19:25] VITALS: BP 121/79; PULSE 91; RESP 16; TEMP 36.8; O2SAT 99; BMI 25.6
[2022-04-03 20:06] LABS: Microscopic, Urine URINE MICROSCOPIC (MICROSCOPIC)
[2022-04-03 20:07] LABS: Basophils # 0.1 K/mm3 (0-0.2); Eosinophils # 0.1 K/mm3 (0.0-0.4); Eosinophils % 1.3 % (0.1-12.0); Hematocrit 43.7 % (37.0-47.0); Hemoglobin 14.2 g/dL (12.2-16.2); Lymphocytes # 0.7 K/mm3 (0.7-4.5); Lymphocytes % 9.6 % (10-50); Mean Corpuscular HGB Conc 32.6 g/dL (31.8-35.4); Mean Corpuscular Hemoglobin 31.3 pg (27.0-31.2); Mean Corpuscular Volume 96.1 fl (81-99); Mean Platelet Volume 8.8 fl (7.4-10.4); Monocytes # 0.4 K/mm3 (0.1-1.0); Monocytes % 5.3 % (1.7-9.3); Neutrophils # 5.8 K/mm3 (1.8-7.8); Neutrophils % 82.9 % (37.0-80.0); Platelet Count 225 K/mm3 (142-424); Red Blood Count 4.55 M/mm3 (4.20-5.40); Red Cell Distribution Width 13.4 % (11.5-17.5)
[2022-04-03 20:12] LABS: Chloride 103 mmol/L (98-107); Sodium 135 mmol/L (136-145)
[2022-04-03 20:13] LABS: Potassium 3.8 mmoL/L (3.5-5.1)
[2022-04-03 20:15] LABS: Alanine Aminotransferase 19 U/L (12-78); Albumin Level 4.6 g/dl (3.5-5.0); Albumin/Globulin Ratio 1.4 (1.1-1.8); Alkaline Phosphatase 75 U/L (38-126); Anion Gap 8.8 mEq/L (5-15); Aspartate Amino Transferase 34 U/L (14-36); Bilirubin,Total 1.1 mg/dl (0.2-1.3); Blood Urea Nitrogen 7 mg/dl (7-17); Calcium 9.6 mg/dl (8.4-10.2); Carbon Dioxide 27 mmol/L (22.0-30.0); Creatinine Clearance Estimated 168 mL/min (50-200); Estimated Glomerular Filt Rate 147 ml/min (>60); GFR (African American) 178 ML/MIN (>60); Globulin 3.2 g/dL (1.3-3.2); Glucose 108 mg/dl (74-100); Total Protein,Serum 7.8 g/dl (6.3-8.2)
[2022-04-03 20:20] LABS: Appearance,Urine CLEAR (Clear); Blood, Urine Negative (Negative); Color,Urine YELLOW (Yellow); Glucose,Urine (UA) Negative (Negative); Ketones,Urine TRACE (Negative); Leukocyte Esterase,Urine 1+ (Negative); Nitrate,Urine POSITIVE (Negative); PH,Urine 8.5 (5.0-8.5); Protein,Urine 2+ (Negative)
[2022-04-03 20:25] LABS: Urine Pregnancy, HCG Qual. Negative (Negative)
--- NOTE | 2022-04-03 20:30 | HMH.EDUROGF ---
ED Disposition Clinical Impression: UTI (urinary tract infection) Qualifiers: Urinary tract infection type: site unspecified Hematuria presence: without hematuria Qualified Code(s): N39.0 - Urinary tract infection, site not specified Cholelithiasis Qualifiers: Cholelithiasis location: gallbladder Cholecystitis presence: without cholecystitis Biliary obstruction: without biliary obstruction Qualified Code(s): K80.20 - Calculus of gallbladder without cholecystitis without obstruction Disposition: Home, Self-Care Condition on Discharge: Good Instructions: DI for Urinary Tract Infection (UTI), DI for Urinary Tract Infection in Children Additional Instructions: fluids and see pcp for follow up and urine culture Prescriptions: levoFLOXacin [Levaquin 500mg tab] 500 mg PO DAILY #7 tab Transmission Status: Pending to [facility] Phenazopyridine HCl [Pyridium 200mg Tablet] 200 pow PO TID #6 tab Transmission Status: Pending to [facility] Referrals: José To MD [Primary Care Provider] - - Critical Care Critical Care Time: No Attestation: On 04/03/22, the high probability of a clinically significant, sudden or life threatening deterioration of the following system(s) required my full and direct attention, intervention and personal management. The time I documented below is in addition to time spent performing reported procedures but includes the following listed in this critical care notation. Medical Decision Making - Medical Records Medical records reviewed: Yes: I reviewed the patient's medical records. - [place] Inquiry Pt receiving controlled substance: No Vital Signs: 04/03/22 19:25 04/03/22 21:42 Temperature 98.3 F Temperature Source Oral Pulse Rate 83 Pulse Rate [Left Radial] 91 H Respiratory Rate 16 Blood Pressure 98/66 L Blood Pressure [Right Arm] 121/79 Blood Pressure Mean [Right Arm] 93 02 Sat by Pulse Oximetry 99 99 Oxygen Delivery Method Room Air Room Air - Lab Data Lab results reviewed: Yes: I reviewed the patient's lab results. Lab Results 04/03/22 19:35: Urine Color Yellow, Urine Appearance Clear, Urine pH 8.5, Ur Specific [place] 1.020, Urine Protein 2+, Urine Glucose (UA) Negative, Urine Ketones Trace, Urine Blood Negative, Urine Nitrate Positive, Urine Bilirubin Negative, Urine Urobilinogen 2.0, Ur Leukocyte Esterase 1+ A, Urine RBC None, Urine WBC 3-5, Ur Squamous Epith Cells 20-50, Urine Bacteria 2+ 04/03/22 19:35: Urine HCG, Qual Negative 04/03/22 19:41: WBC 7.0, RBC 4.55, Hgb 14.2, Hct 43.7, MCV 96.1, MCH 31.3 H, MCHC 32.6, RDW 13.4, Plt Count 225, MPV 8.8, Neut % (Auto) 82.9 H, Lymph % (Auto) 9.6 L, [place] % (Auto) 5.3, Eos % (Auto) 1.3, Baso % (Auto) 1.0, Neut # (Auto) 5.8, Lymph # (Auto) 0.7, [place] # (Auto) 0.4, Eos # (Auto) 0.1, Baso # (Auto) 0.1 04/03/22 19:41: Sodium 135 L, Potassium 3.8, Chloride 103, Carbon Dioxide 27, Anion Gap 8.8, BUN 7, Creatinine 0.50 L, Estimated Creat Clear 168, Estimated GFR 147, Est GFR ( Amer) 178, Glucose 108 H, Calcium 9.6, Total Bilirubin 1.1, AST 34, ALT 19, Alkaline Phosphatase 75, Total Protein 7.8, Albumin 4.6, Globulin 3.2, Albumin/Globulin Ratio 1.4 Result diagrams: 04/03/22 19:41 04/03/22 19:41 Orders (Tests/Meds): ED MEDICATIONS Generic Name Dose Route Start Last Admin Trade Name Freq PRN Reason Stop Dose Admin Ceftriaxone Sodium 1 gm/ 50 mls @ 100 mls/hr 04/03/22 21:45 04/03/22 21:51 Sodium Chloride IV 04/17/22 21:44 100 mls/hr Q24H RONY Administration Sodium Chloride 10 ml 04/03/22 20:15 Sodium Chloride 0.9% 10ml Flush Syringe IV 05/03/22 20:14 NEEDED PRN Maintain IV Site Discontinued Medications Generic Name Dose Route Start Last Admin Trade Name Freq PRN Reason Stop Dose Admin Sodium Chloride 1,000 mls @ 999 mls/hr 04/03/22 20:00 04/03/22 20:06 Sod Chlor 0.9% 1000ml Bag IV 04/03/22 21:00 999 mls/hr .Q1H1M RONY Administration Ketorolac
[2022-04-03 20:48] LABS: Bilirubin,Urine Negative (Negative)
[2022-04-03 20:49] LABS: Squamous Epithelial Cell,Urine 20-50 #/hpf (0-5)
[2022-04-03 20:50] LABS: Bacteria,Urine 2+ /lpf
--- NOTE | 2022-04-03 20:53 | CT_ITS ---
PROCEDURE INFORMATION: Exam: CT Abdomen And Pelvis Without Contrast Exam date and time: 04/03/2022 8:57 PM Age: 27 years old Clinical indication: Abdominal pain; Additional info: Abd pain started yesterday TECHNIQUE: Imaging protocol: Computed tomography of the abdomen and pelvis without contrast. Radiation optimization: All CT scans at this facility use at least one of these dose optimization techniques: automated exposure control; mA and/or kV adjustment per patient size (includes targeted exams where dose is matched to clinical indication); or iterative reconstruction. COMPARISON: ABDPELW CT ABD PELVIS W/ CONTRAST 08/09/2017 5:38 PM FINDINGS: Lungs: Mild scarring and atelectasis in the lower lungs. Left lower lobe granuloma. Liver: Normal. No mass. Gallbladder and bile ducts: Cholelithiasis. Pancreas: Normal. No ductal dilation. Spleen: Normal. No splenomegaly. Adrenal glands: Normal. No mass. Kidneys and ureters: Mild right hydronephrosis. Mild right ureteral wall thickening. Nonobstructing left renal calculus. Stomach and bowel: Unremarkable. No obstruction. No mucosal thickening. Appendix: Unremarkable appendix. Intraperitoneal space: Trace free fluid in the pelvis. Vasculature: Unremarkable. No abdominal aortic aneurysm. Lymph nodes: Unremarkable. No enlarged lymph nodes. Urinary bladder: Unremarkable as visualized. Reproductive: Unremarkable as visualized. Bones/joints: Unremarkable. No acute fracture. Soft tissues: Tiny fat containing umbilical hernia. IMPRESSION: 1. Mild right hydronephrosis. Mild right ureteral wall thickening. A recently passed ureteral stone versus ascending urinary tract infection would be most likely. 2. Cholelithiasis. 3. Nonobstructing left renal calculus.
[2022-04-03 21:42] VITALS: BP 98/66; PULSE 83; O2SAT 99
--- NOTE | 2022-04-03 21:45 | PC.NURSE ---
Pt updated on POC. No new needs at this time.
[2022-04-03 22:15] VITALS: BP 116/79; PULSE 87; RESP 16; TEMP 37.2; O2SAT 100
== END 2022-04-03 22:17 | disposition home or self-care (01) ==
PROVIDERS: Emergency Provider Emergency Medicine; PCP Emergency Medicine
DX: N39.0 Urinary tract infection, site not specified (principal); K80.20 Calculus of gallbladder without cholecystitis without obstruction; Z86.14 Personal history of Methicillin resistant Staphylococcus aureus infection; J45.909 Unspecified asthma, uncomplicated
CPT/HCPCS: 74176; 80053; 81001; 81025; 85025; 87086; 87088; 87186; 96365; 96366; 96375; 99284; J0696

== ENCOUNTER 2022-12-07 12:17 | Emergency (ER) | payer BC, SELFPAY ==
--- NOTE | 2022-12-07 12:37 | EXP.UTC ---
Discharge Plan Disposition Patient Disposition: Home, Self-Care Condition: Good Prescriptions Prescriptions: New amoxicillin [amoxicillin] 500 mg tablet 500 mg PO TID 10 Days Qty: 30 0RF ibuprofen [IBU] 800 mg tablet 800 mg PO Q8HP PRN (Reason: Moderate Pain) Qty: 30 0RF No Action acetaminophen 500 mg capsule 500 mg PO Q6H PRN (Reason: pain) Qty: 30 0RF albuterol sulfate 90 mcg/actuation aerosol powdr breath activated 1 inh INHALATION Q4-6H PRN (Reason: ASTHMA) Qty: 1 0RF pantoprazole [Protonix] 40 mg tablet,delayed release (DR/EC) 40 mg PO DAILY Qty: 90 3RF albuterol sulfate [Ventolin HFA] 90 mcg/actuation HFA aerosol inhaler See Rx Instructions .ROUTE .COMPLEX Qty: 18 1RF Dose Instruction: INHALE TWO PUFFS BY MOUTH EVERY 6 HOURS NEEDED FOR SHORTNESS OF BREATH Rx Instructions: INHALE TWO PUFFS BY MOUTH EVERY 6 HOURS NEEDED FOR SHORTNESS OF BREATH Referrals Follow up/Referrals: Landon Ochoa MD [Physician] - See instructions Paul Campbell MD [Primary Care Provider] - See instructions Activity Restrictions/Add. Instructions Additional Instructions/Restrictions: Drink plenty of fluids. If you continue to have pain of your maxillary sinus area, please follow up with your primary care provider or the ENT physician that I put the referral in to. Take tylenol or ibuprofen for pain or fever. Take the medications as directed. Follow up with your regular doctor. GO TO THE ER FOR ANY WORSENING SYMPTOMS Clinical Impressions Clinical Impression: Sinusitis, Fall, Blunt trauma of face Instructions Patient Instructions: DI for Sinusitis Discharge ED Provider: Sameer Liu [facility] General Stated complaint: RT Facial/sinus pain Time Seen by Provider: 12/07/22 12:37 History of Present Illness Provider Complaint: She states that she fell in her shower 5 days ago. She hit her face in the area of her right maxillary sinus when she fell. Since then she has had tenderness in that area. She also has some sinus congestion and thinks that she has a sinus infection. She denies any nose bleeding, neck pain, loss of consciousness or any other symptoms. Related Data Previous Rx's Medication Instructions Recorded albuterol sulfate 90 mcg/actuation 1 inh inhalation Q4-6H PRN ASTHMA 06/07/19 breath activated powder inhaler #1 ea pantoprazole 40 mg tablet,delayed 40 mg PO DAILY #90 tabs 11/10/21 release (Protonix) albuterol sulfate 90 mcg/actuation See Rx Instructions .Route 10/04/22 aerosol inhaler (Ventolin HFA) .COMPLEX #18 grams acetaminophen 500 mg capsule 500 mg PO Q6H PRN pain #30 caps 10/23/22 amoxicillin 500 mg tablet 500 mg PO TID 10 days #30 tabs 12/07/22 ibuprofen 800 mg tablet (IBU) 800 mg PO Q8HP PRN Moderate Pain 12/07/22 #30 tabs Allergies Allergy/AdvReac Type Severity Reaction Status Date / Time No Known Allergies [facility]07[facility]22 [facility] Disclaimer: The information contained in this section may have been updated after the patient was seen, as this information can be updated by other users. Medical History Cholelithiasis LLQ abdominal pain Pyelonephritis Surgical History History of section Social History Smoking Status: Current every day smoker tobacco type: cigarettes packs per day: 1 alcohol intake: never substance use type: denies use current occupational status: employed Travel in the last 8 weeks: None household members: spouse housing: house ROS Obtained: Yes All systems reviewed & no additional complaints except as documented Constitutional Constitutional: Denies chills, Denies fever(s) and Denies headache(s) Eyes Eyes: Denies eye discharge ENT Ears, Nose, Mouth, and Throat: Denies dizziness, Denies otalgia, Denies headach
[2022-12-07 12:40] VITALS: BP 122/76; PULSE 86; RESP 20; TEMP 36.9; O2SAT 99; BMI 22.5
[2022-12-07 13:35] VITALS: BP 122/76; PULSE 86; RESP 20; TEMP 36.9; O2SAT 99
== END 2022-12-07 13:34 | disposition home or self-care (01) ==
PROVIDERS: Emergency Provider Nurse Practitioner Family; PCP Family Medicine
DX: S09.93XA Unspecified injury of face, initial encounter (principal); J32.9 Chronic sinusitis, unspecified; W18.2XXA Fall in (into) shower or empty bathtub, initial encounter
CPT/HCPCS: 99212; 99213; G0463

== ENCOUNTER → 2023-04-24 19:12 | Outpatient (CLI) | payer BC, SELFPAY | PROVIDERS: PCP Nurse Practitioner Family; Visit Provider Nurse Practitioner Family | DX: R30.0 Dysuria (principal); B96.29 Other Escherichia coli [E. coli] as the cause of diseases classified elsewhere | CPT/HCPCS: 87086; 87088; 87186 ==

== ENCOUNTER 2023-05-15 14:01 | Emergency (ER) | payer BC, SELFPAY ==
[2023-05-15 14:05] VITALS: BP 107/75; PULSE 105; RESP 20; TEMP 36.8; O2SAT 95; BMI 24.5
--- NOTE | 2023-05-15 14:16 | HMH.EDGENADL ---
Discharge Plan Disposition Patient Disposition: Home, Self-Care Prescriptions Prescriptions: New promethazine-DM 6.25-15 mg/5 mL syrup 5 ml PO Q6H PRN (Reason: cough) 7 Days Qty: 118 0RF No Action acetaminophen 500 mg capsule 500 mg PO Q6H PRN (Reason: pain) Qty: 30 0RF sulfamethoxazole-trimethoprim [Bactrim DS] 800-160 mg tablet 1 tab PO BID 10 Days Qty: 20 0RF albuterol sulfate [Ventolin HFA] 90 mcg/actuation HFA aerosol inhaler See Rx Instructions .ROUTE .COMPLEX Qty: 18 0RF Dose Instruction: INHALE TWO PUFFS BY MOUTH EVERY 6 HOURS NEEDED FOR SHORTNESS OF BREATH Rx Instructions: INHALE TWO PUFFS BY MOUTH EVERY 6 HOURS NEEDED FOR SHORTNESS OF BREATH polyethylene glycol 3350 [Miralax] 17 gram powder in packet 17 g PO DAILY Qty: 30 2RF famotidine [Pepcid] 20 mg tablet 20 mg PO DAILY Qty: 30 2RF albuterol sulfate 90 mcg/actuation aerosol powdr breath activated 1 inh INHALATION Q4-6H PRN (Reason: ASTHMA) Qty: 1 0RF pantoprazole [Protonix] 40 mg tablet,delayed release (DR/EC) 40 mg PO DAILY Qty: 90 3RF methocarbamol 500 mg tablet 500 mg PO TID PRN (Reason: pain) 30 Days Qty: 30 0RF naproxen 500 mg tablet 500 mg PO BID PRN (Reason: pain) Qty: 30 0RF amoxicillin [amoxicillin] 500 mg tablet 500 mg PO TID 10 Days Qty: 30 0RF ibuprofen [IBU] 800 mg tablet 800 mg PO Q8HP PRN (Reason: Moderate Pain) Qty: 30 0RF Referrals Follow up/Referrals: José To MD [Primary Care Provider] - See instructions Activity Restrictions/Add. Instructions Additional Instructions/Restrictions: You may take 1000 mg of Tylenol and 800 mg of ibuprofen together or separately each 3 times a day. Take ibuprofen with food. Take the cough medicine that I gave you as needed. Return with high fevers that are not resolving or any respiratory distress. I highly recommend that you stop smoking as discussed. Clinical Impressions Clinical Impression: Upper respiratory infection, Encounter for smoking cessation counseling Instructions Patient Instructions: DI for Acute Bronchitis Discharge ED Provider: Maribell Floyd General Adult HPI General Chief complaint: Upper Respiratory Infection Stated complaint: body aches, chills, sore throat, h/a Time Seen by Provider: 05/15/23 14:10 Mode of Arrival: Ambulatory Source of Information: Patient Limitations: No Limitations Description of Symptoms (Recalled from ER Triage Doc. by RN): pt to ed c/o body aches, chills, sore throat and cough. pt states she started having symptoms last night. History of Present Illness HPI narrative: Patient is a 28-year-old female with cough rhinorrhea sore throat body aches and chills. She states this been going on less than 24 hours she took 400 mg of ibuprofen and 1000 mg of Tylenol without significant improvement. She continues to smoke but has no other medical problems. Related Data Previous Rx's Medication Instructions Recorded albuterol sulfate 90 mcg/actuation 1 inh inhalation Q4-6H PRN ASTHMA 03/14/19 breath activated powder inhaler #1 ea pantoprazole 40 mg tablet,delayed 40 mg PO DAILY #90 tabs 11/10/21 release (Protonix) acetaminophen 500 mg capsule 500 mg PO Q6H PRN pain #30 caps 10/23/22 amoxicillin 500 mg tablet 500 mg PO TID 10 days #30 tabs 12/07/22 ibuprofen 800 mg tablet (IBU) 800 mg PO Q8HP PRN Moderate Pain 12/07/22 #30 tabs albuterol sulfate 90 mcg/actuation See Rx Instructions .Route 04/24/23 aerosol inhaler (Ventolin HFA) .COMPLEX #18 grams famotidine 20 mg tablet (Pepcid) 20 mg PO DAILY #30 tabs 04/24/23 polyethylene glycol 3350 17 gram 17 g PO DAILY #30 ea 04/24/23 oral powder packet (Miralax) sulfamethoxazole 800 1 tab PO BID 10 days #20 tabs 04/24/23 mg-trimethoprim 160 mg tablet (Bactrim DS) methocarbamol 500 mg tablet 500 mg PO TID PRN pain 30 days #30 05/11/23 tabs naproxen 500 mg tablet 500 mg PO BID PRN pain #30 tabs 05/11/23 promethazine-DM
[2023-05-15 14:30] VITALS: BP 110/77; PULSE 87; RESP 20; TEMP 36.8; O2SAT 97
== END 2023-05-15 14:31 | disposition home or self-care (01) ==
PROVIDERS: Emergency Provider Student in an Organized Health Care Education/Training Program; PCP Emergency Medicine
DX: J06.9 Acute upper respiratory infection, unspecified (principal); R51.9 Headache, unspecified; J02.9 Acute pharyngitis, unspecified; F17.210 Nicotine dependence, cigarettes, uncomplicated
CPT/HCPCS: 99283

== ENCOUNTER 2023-05-27 19:47 | Emergency (ER) | payer BC, SELFPAY ==
[2023-05-27 19:55] VITALS: BP 119/74; PULSE 76; RESP 18; TEMP 36.8; O2SAT 100; BMI 22.6
[2023-05-27 20:03] LABS: UTC Pregnancy Test, Urine Negative (Negative)
--- NOTE | 2023-05-27 20:06 | EXP.UTC ---
Discharge Plan Disposition Patient Disposition: Home, Self-Care Condition: Good Prescriptions Prescriptions: No Action acetaminophen 500 mg capsule 500 mg PO Q6H PRN (Reason: pain) Qty: 30 0RF sulfamethoxazole-trimethoprim [Bactrim DS] 800-160 mg tablet 1 tab PO BID 10 Days Qty: 20 0RF albuterol sulfate [Ventolin HFA] 90 mcg/actuation HFA aerosol inhaler See Rx Instructions .ROUTE .COMPLEX Qty: 18 0RF Dose Instruction: INHALE TWO PUFFS BY MOUTH EVERY 6 HOURS NEEDED FOR SHORTNESS OF BREATH Rx Instructions: INHALE TWO PUFFS BY MOUTH EVERY 6 HOURS NEEDED FOR SHORTNESS OF BREATH polyethylene glycol 3350 [Miralax] 17 gram powder in packet 17 g PO DAILY Qty: 30 2RF famotidine [Pepcid] 20 mg tablet 20 mg PO DAILY Qty: 30 2RF albuterol sulfate 90 mcg/actuation aerosol powdr breath activated 1 inh INHALATION Q4-6H PRN (Reason: ASTHMA) Qty: 1 0RF pantoprazole [Protonix] 40 mg tablet,delayed release (DR/EC) 40 mg PO DAILY Qty: 90 3RF methocarbamol 500 mg tablet 500 mg PO TID PRN (Reason: pain) 30 Days Qty: 30 0RF naproxen 500 mg tablet 500 mg PO BID PRN (Reason: pain) Qty: 30 0RF amoxicillin [amoxicillin] 500 mg tablet 500 mg PO TID 10 Days Qty: 30 0RF ibuprofen [IBU] 800 mg tablet 800 mg PO Q8HP PRN (Reason: Moderate Pain) Qty: 30 0RF promethazine-DM 6.25-15 mg/5 mL syrup 5 ml PO Q6H PRN (Reason: cough) 7 Days Qty: 118 0RF Referrals Follow up/Referrals: José To MD [Primary Care Provider] - See instructions Activity Restrictions/Add. Instructions Additional Instructions/Restrictions: Make sure to follow up with your Family Doctor if symptoms continue Return if needed Straight to ER if any life threatening symptoms Clinical Impressions Clinical Impression: Burning with urination Discharge ED Provider: Dainsha Freeman [facility] [place] General Stated complaint: back and pain when urinates Mode of Arrival: Ambulatory Source of Information: Patient Limitations: No Limitations Time Seen by Provider: 05/27/23 20:06 Description of Symptoms (Recalled from Triage Doc. by RN): PATIENT C/O LOWER BACK PAIN AND PAIN WITH URINATION X 3 DAYS HEENT Symptoms (Recalled from RN notes): No Resp Symptoms (Recalled from RN notes): No Skin Symptoms (Recalled from RN notes): No MS Symptoms (Recalled from RN notes): No Functional Status (Recalled from RN notes): WNL History of Present Illness Provider Complaint: Patient states that for the last 3 days she has been having achy like feeling in her lower back and burning with urination States that she feels like she may have UTI Related Data Previous Rx's Medication Instructions Recorded albuterol sulfate 90 mcg/actuation 1 inh inhalation Q4-6H PRN ASTHMA 03/14/19 breath activated powder inhaler #1 ea pantoprazole 40 mg tablet,delayed 40 mg PO DAILY #90 tabs 11/10/21 release (Protonix) acetaminophen 500 mg capsule 500 mg PO Q6H PRN pain #30 caps 10/23/22 amoxicillin 500 mg tablet 500 mg PO TID 10 days #30 tabs 12/07/22 ibuprofen 800 mg tablet (IBU) 800 mg PO Q8HP PRN Moderate Pain 12/07/22 #30 tabs albuterol sulfate 90 mcg/actuation See Rx Instructions .Route 04/24/23 aerosol inhaler (Ventolin HFA) .COMPLEX #18 grams famotidine 20 mg tablet (Pepcid) 20 mg PO DAILY #30 tabs 04/24/23 polyethylene glycol 3350 17 gram 17 g PO DAILY #30 ea 04/24/23 oral powder packet (Miralax) sulfamethoxazole 800 1 tab PO BID 10 days #20 tabs 04/24/23 mg-trimethoprim 160 mg tablet (Bactrim DS) methocarbamol 500 mg tablet 500 mg PO TID PRN pain 30 days #30 05/11/23 tabs naproxen 500 mg tablet 500 mg PO BID PRN pain #30 tabs 05/11/23 promethazine-DM 6.25 mg-15 mg/5 mL 5 ml PO Q6H PRN cough 7 days #118 05/15/23 oral syrup mL Allergies Allergy/AdvReac Type Severity Reaction Status Date / Time No Known Allergies Allergy Verified 04/24/23 15:30 Worker's Comp Is this a Worker's Comp case?: No PFSH PFSH Di
[2023-05-27 20:07] LABS: Microscopic, Urine URINE MICROSCOPIC (MICROSCOPIC)
[2023-05-27 20:10] VITALS: BP 119/74; PULSE 76; RESP 18; TEMP 36.8; O2SAT 100
[2023-05-27 20:16] LABS: Appearance,Urine CLEAR (Clear); Bilirubin,Urine Negative (Negative); Blood, Urine Negative (Negative); Color,Urine YELLOW (Yellow); Glucose,Urine (UA) Negative (Negative); Ketones,Urine Negative (Negative); Leukocyte Esterase,Urine Negative (Negative); Nitrate,Urine Negative (Negative); Protein,Urine Negative (Negative); Specific Gravity, Urine <= 1.005 (1.005-1.030)
[2023-05-27 20:30] LABS: Bacteria,Urine 1+ /lpf; Squamous Epithelial Cell,Urine 20-50 #/hpf (0-5)
== END 2023-05-27 20:40 | disposition home or self-care (01) ==
PROVIDERS: Emergency Provider Nurse Practitioner; PCP Emergency Medicine
DX: R30.0 Dysuria (principal); M54.59 Other low back pain; F17.210 Nicotine dependence, cigarettes, uncomplicated
CPT/HCPCS: 81001; 81025; 99212; 99214; G0463

== ENCOUNTER 2023-06-22 20:39 | Emergency (ER) | payer BC, SELFPAY ==
[2023-06-22 20:40] VITALS: BP 110/76; PULSE 90; RESP 18; TEMP 36.7; O2SAT 99; BMI 24.7
--- NOTE | 2023-06-22 21:03 | HMH.EDGENADL ---
Discharge Plan Disposition Patient Disposition: Home, Self-Care Condition: Good Prescriptions Prescriptions: No Action polyethylene glycol 3350 [Miralax] 17 gram powder in packet 17 g PO DAILY Qty: 30 2RF famotidine [Pepcid] 20 mg tablet 20 mg PO DAILY Qty: 30 2RF sertraline [Zoloft] 50 mg tablet 50 mg PO DAILY Qty: 30 1RF ondansetron 4 mg tablet,disintegrating 4 mg PO BID PRN (Reason: nausea and vomiting) 5 Days Qty: 10 2RF albuterol sulfate [Ventolin HFA] 90 mcg/actuation HFA aerosol inhaler 2 puff inhalation Q6H 30 Days Qty: 18 2RF methocarbamol 500 mg tablet 500 mg PO TID PRN (Reason: pain) 30 Days Qty: 30 0RF naproxen 500 mg tablet 500 mg PO BID PRN (Reason: pain) Qty: 30 0RF Referrals Follow up/Referrals: Amara Felder PA [Primary Care Provider] - See instructions Activity Restrictions/Add. Instructions Additional Instructions/Restrictions: You were evaluated in the emergency department today. Please use the ointment provided to you 4 times a day as instructed for 4 days or until your symptoms have resolved. Follow-up outpatient with your eye doctor and primary care provider. Take Tylenol and ibuprofen as needed for pain. Return to the emergency department for new or worsening symptoms. Clinical Impressions Clinical Impression: Abrasion, corneal Qualifiers: Encounter type: initial encounter Laterality: right Qualified Code(s): S05.01XA - Injury of conjunctiva and corneal abrasion without foreign body, right eye, initial encounter Instructions Patient Instructions: DI for Corneal Abrasion Discharge ED Provider: Kavya Garibay General Adult HPI General Chief complaint: Eye Problems Stated complaint: RT eye irritation Time Seen by Provider: 06/22/23 20:48 Mode of Arrival: Ambulatory Source of Information: Patient Limitations: No Limitations Description of Symptoms (Recalled from ER Triage Doc. by RN): Pt presents with right eye irritation that began today after working outside. Eye is red, watery, itching and burning. History of Present Illness HPI narrative: This patient is a 28-year-old female who denies significant past medical history presenting to the emergency department for right eye pain, photophobia, and eye tearing that started earlier today. No significant associated vision changes. She denies any known traumatic injuries. She does not wear contact lenses or have any ocular history. No chemical exposure, trauma, or other concerns noted. She does not weld or do any other activities associated. Related Data Previous Rx's Medication Instructions Recorded famotidine 20 mg tablet (Pepcid) 20 mg PO DAILY #30 tabs 04/24/23 polyethylene glycol 3350 17 gram 17 g PO DAILY #30 ea 04/24/23 oral powder packet (Miralax) sertraline 50 mg tablet (Zoloft) 50 mg PO DAILY #30 tabs 05/31/23 ondansetron 4 mg disintegrating 4 mg PO BID PRN nausea and 06/01/23 tablet vomiting 5 days #10 tabs albuterol sulfate 90 mcg/actuation 2 puff inhalation Q6H 30 days #18 06/12/23 aerosol inhaler (Ventolin HFA) grams methocarbamol 500 mg tablet 500 mg PO TID PRN pain 30 days #30 06/12/23 tabs naproxen 500 mg tablet 500 mg PO BID PRN pain #30 tabs 06/12/23 Allergies Allergy/AdvReac Type Severity Reaction Status Date / Time No Known Allergies Allergy Verified 05/31/23 13:55 [facility] Disclaimer: The information contained in this section may have been updated after the patient was seen, as this information can be updated by other users. Medical History Cholelithiasis LLQ abdominal pain Pyelonephritis Surgical History H/O tubal ligation History of section Social History Smoking Status: Never smoker alcohol intake: never substance use type: denies use current occupational status: employ
[2023-06-22 21:28] VITALS: BP 170/87; PULSE 77; RESP 18; TEMP 36.5; O2SAT 99
== END 2023-06-22 21:29 | disposition home or self-care (01) ==
PROVIDERS: Emergency Provider Emergency Medicine; PCP Physician Assistant
DX: S05.01XA Injury of conjunctiva and corneal abrasion without foreign body, right eye, initial encounter (principal); X58.XXXA Exposure to other specified factors, initial encounter
CPT/HCPCS: 99283